=== PATIENT | female | born 1975 | race Caucasian/White ===

== ENCOUNTER 2016-06-17 19:10 | Emergency (ER) | payer OTHER ==
[~2016-06-17] VITALS: Ht 162.6 cm; Wt 63.5 kg
--- NOTE | ~2016-06-17 | EKG ---
[address] [address] ELECTROCARDIOGRAM REPORT Name: SHOSHANA SORIANO Room #: DEP [facility]#: [id number] Admission: 06/17/16 Attend Phys: Discharge: 06/17/16 Date of : 71 Report #: [id number] THIS REPORT FOR: //name// [facility] ED Test Date: 2016-06-17 Test Time: 19:14:15 Pat Name: SHOSHANA SORIANO Department: Room: Gender: F Data Management Analyst: ART : 1975 Requested By: Jw Fletcher Order Number: [id number] MD: Darrel Banks Measurements Intervals [place] Rate: 73 P: 25 [place]: 137 QRS: 40 QRSD: 97 T: 49 QT: 379 QTc: 418 Interpretive Statements Sinus arrhythmia Compared to ECG 05/24/2016 20:27:27 Sinus tachycardia no longer present Electronically Signed On 06-18-2016 7:34:17 CDT by Darrel Banks [email or web address] <ELECTRONICALLY SIGNED> By: Darrel Banks MD, [facility] 06/18/16 0734 [id number] 13 Darrel Banks MD, FACC /EPI
[~2016-06-17 19:10] MED LIST: ALBUTEROL INH INH; ALBUTEROL2.5 MG/0.5; ALBUTEROL2.5 MG/0.5 INH; ALBUTEROL2.5 MG/31 INH; ALBUTEROL2.5 MG/32 IH; CLEOCIN HCL150 MG PO; FLEXERIL PO; IBUPROFEN 200200 M1 PO; LEVAQUIN 750 M750 MG PO; MEDROL DOSPAK21 TAB PO; MEDROLDOSEPACK PO; MUCINEX22 ML NS; NOHOMEMEDICATIONS; NORCO 5-325 TA1 EACH PO; PENICILLIN V P500 MG PO; PREDNISONE 20 M20 MG PO; PREDNISONE50 MG PO; PRILOSEC 20 MG20 MG PO; PROAIR HFA8.5 GM IH; PROVENTIL HFA6.7 G1 INH; ROBITUSSIN100 MG/53 PO; TESSALON PERLE100 M1 PO; VENTOLIN HFA 1818 GM INH; ZOFRAN ODT4 MG PO; ZPAK PO
[2016-06-17 20:35] LABS: ABSOLUTE NEUTROPHILS 2.7 thou/uL (1.4-8.2); BASOPHILS 0.7 % (0.0-2.0); EOSINOPHILS 4.4 % (0.0-3.0); HEMATOCRIT 40.8 % (37.0-47.0); HEMOGLOBIN 13.8 gm/dL (12.0-15.0); LYMPHOCYTES 41.2 % (24.0-44.0); MCH 30.9 pg (26.0-34.0); MCHC 33.8 g/dL (28.0-37.0); MCV 91.3 fL (80.0-100.0); PLATELET COUNT 276 thou/uL (150-400); POLYS 46.7 % (36.0-66.0); RBC 4.46 mil/uL (4.20-5.00); RDW 13.8 % (10.5-14.5); WBC 5.7 thou/uL (4.0-11.0)
[2016-06-17 20:36] LABS: MANUAL DIFF NO
[2016-06-17 20:42] LABS: ANION GAP 4 mmol/L (7-16); BUN 9 mg/dL (7-18); CALCIUM 8.9 mg/dL (8.5-10.1); CHLORIDE 109 mmol/L (98-107); CO2 26 mmol/L (21-32); GLUCOSE 94 mg/dL (70-99); POTASSIUM 3.6 mmol/L (3.5-5.1); SODIUM 139 mmol/L (136-145)
[2016-06-17] MEDS ORDERED: PREDNISONE 20 M20 MG PO (20:48)
[2016-06-17 20:49] LABS: ALBUMIN 3.3 g/dL (3.4-5.0); ALKALINE PHOSPHATASE 72 U/L (46-116); SGOT 14 U/L (15-37); SGPT 17 U/L (30-65); TOTAL BILIRUBIN 0.4 mg/dL (<0.1-1.0); TOTAL PROTEIN 6.4 g/dL (6.4-8.2); TROPONIN-I < 0.04 ng/mL (<0.04-0.07)
[2016-06-17] MEDS ORDERED: VENTOLIN HFA 1818 GM INH (21:21)
[2016-06-17] MEDS ORDERED: SINGULAIR 10 MG10 M1 PO (21:21)
[2016-06-17 21:23] VITALS: BP 113/80
== END 2016-06-17 21:24 | disposition home or self-care (01) ==
LOC: ER 19:10
PROVIDERS: Physician Assistant
DX: J45.901 Unspecified asthma with (acute) exacerbation (principal); D68.2 Hereditary deficiency of other clotting factors; F17.210 Nicotine dependence, cigarettes, uncomplicated

== ENCOUNTER 2016-10-22 01:13 | Emergency (ER) | payer OTHER ==
[~2016-10-22] VITALS: Ht 162.6 cm; Wt 68.0 kg
[~2016-10-22 01:13] MED LIST changes: +SINGULAIR 10 MG10 M1 PO
[2016-10-22] MEDS ORDERED: ASPIR 8181 MG PO (01:37)
[2016-10-22] MEDS ORDERED: PREDNISONE 20 M20 MG PO (02:06)
[2016-10-22 02:56] VITALS: BP 110/65
== END 2016-10-22 02:59 | disposition home or self-care (01) ==
LOC: ER 01:13
DX: J45.901 Unspecified asthma with (acute) exacerbation (principal); Z87.19 Personal history of other diseases of the digestive system; Z86.718 Personal history of other venous thrombosis and embolism; F17.210 Nicotine dependence, cigarettes, uncomplicated; Z79.82 Long term (current) use of aspirin

== ENCOUNTER 2016-12-30 21:34 | Emergency (ER) | payer OTHER ==
[~2016-12-30] VITALS: Ht 162.6 cm; Wt 68.0 kg
[~2016-12-30 21:34] MED LIST changes: +ASPIR 8181 MG PO
[2016-12-30] MEDS ORDERED: PREDNISONE50 MG PO (23:18)
[2016-12-30 23:29] VITALS: BP 112/75
== END 2016-12-30 23:31 | disposition home or self-care (01) ==
LOC: ER 21:34
DX: J45.901 Unspecified asthma with (acute) exacerbation (principal); F17.210 Nicotine dependence, cigarettes, uncomplicated; Z86.718 Personal history of other venous thrombosis and embolism; Z87.19 Personal history of other diseases of the digestive system

== ENCOUNTER 2017-05-02 17:45 | Emergency (ER) | payer OTHER ==
[~2017-05-02] VITALS: Ht 162.6 cm; Wt 68.0 kg
[~2017-05-02 17:45] MED LIST changes: +AFRIN30 ML NASAL; +MUCINEX DM ER1 EAC1 PO; +PREDNISONE 10 M10 MG PO
[2017-05-02] MEDS ORDERED: PROAIR HFA8.5 GM INH (17:58)
[2017-05-02] MEDS ORDERED: PREDNISONE 20 M20 MG PO (17:58)
[2017-05-02] MEDS ORDERED: ALBUTEROL2.5 MG/31 INH (17:58)
[2017-05-02 18:45] VITALS: BP 140/83
== END 2017-05-02 19:28 | disposition home or self-care (01) ==
LOC: ER 17:45
DX: Z77.098 Contact with and (suspected) exposure to other hazardous, chiefly nonmedicinal, chemicals (principal); J45.901 Unspecified asthma with (acute) exacerbation; F17.210 Nicotine dependence, cigarettes, uncomplicated

== ENCOUNTER 2017-05-05 06:01 | Observation (INO) | payer OTHER ==
[~2017-05-05] VITALS: Ht 162.6 cm; Wt 68.0 kg
[~2017-05-05 06:01] MED LIST changes: +PROAIR HFA8.5 GM INH
[2017-05-05 06:07] VITALS: BP 127/76
[2017-05-05] MEDS ORDERED: PREDNISONE 20 M20 MG PO (07:47)
[2017-05-05 08:21] VITALS: BP 125/70
[2017-05-05 08:26] LABS: HEMATOCRIT 39.7 % (37.0-47.0); HEMOGLOBIN 13.3 gm/dL (12.0-15.0); MCH 30.2 pg (26.0-34.0); MCHC 33.6 g/dL (28.0-37.0); MCV 89.7 fL (80.0-100.0); RBC 4.42 mil/uL (4.20-5.00); RDW 13.7 % (10.5-14.5)
[2017-05-05 08:39] LABS: CREATININE 0.9 mg/dL (0.6-1.0); POTASSIUM 3.7 mmol/L (3.5-5.1)
[2017-05-05 08:40] LABS: URINE BILIRUBIN NEGATIVE (Negative); URINE BLOOD NEGATIVE (Negative); URINE CLARITY CLEAR; URINE COLOR YELLOW; URINE GLUCOSE-RANDOM* NEGATIVE (Negative); URINE KETONES NEGATIVE (Negative); URINE LEUKOCYTES NEGATIVE (Negative); URINE NITRITE NEGATIVE (Negative); URINE PROTEIN (DIPSTICK) NEGATIVE (Negative); URINE SPECIFIC GRAVITY 1.025 (1.005-1.035); URINE UROBILINOGEN 0.2 E.U./dl (0.2-1.0)
[2017-05-05 08:47] LABS: ALBUMIN 3.5 g/dL (3.4-5.0); TOTAL BILIRUBIN 0.3 mg/dL (<0.1-1.0); TOTAL PROTEIN 6.5 g/dL (6.4-8.2)
[2017-05-05 09:04] VITALS: BP 110/66
[2017-05-05 09:20] VITALS: BP 110/59
[2017-05-05 10:26] LABS: TSH 2.407 uIU/mL (0.358-3.740)
[2017-05-05 16:46] VITALS: BP 104/61
[2017-05-05 19:58] VITALS: BP 120/65
[2017-05-06] VITALS: BP 100/50
[2017-05-06 04:00] VITALS: BP 95/53
[2017-05-06 04:20] LABS: CALCIUM 8.9 mg/dL (8.5-10.1); CREATININE 0.9 mg/dL (0.6-1.0); MAGNESIUM 2.1 mg/dL (1.8-2.4); POTASSIUM 4.4 mmol/L (3.5-5.1)
[2017-05-06 05:07] LABS: GLYCOHEMOGLOBIN (HGB A1C) 5.4 % (4.8-5.6)
[2017-05-06 07:21] VITALS: BP 104/60
[2017-05-06] MEDS ORDERED: SYMBICORT160 MCG/4. INH (08:37)
[2017-05-06] MEDS ORDERED: ACCUNEB SO1.25 MG/1 INH (08:37)
[2017-05-06 09:59] VITALS: BP 104/60
== END 2017-05-06 10:52 | disposition home or self-care (01) ==
LOC: ER 06:01 → EROBS 08:00 → 4N 09:04
PROVIDERS: Emergency Medicine; Nurse Practitioner
DX: J45.901 Unspecified asthma with (acute) exacerbation (principal); D72.829 Elevated white blood cell count, unspecified; T38.0X5A Adverse effect of glucocorticoids and synthetic analogues, initial encounter; R73.9 Hyperglycemia, unspecified; D68.51 Activated protein C resistance; Z86.718 Personal history of other venous thrombosis and embolism; Z87.891 Personal history of nicotine dependence

== ENCOUNTER 2017-06-01 19:30 | Inpatient (IN) | payer OTHER ==
[~2017-06-01] VITALS: Ht 162.6 cm; Wt 75.3 kg
[~2017-06-01 19:30] MED LIST changes: +ACCUNEB SO1.25 MG/1 INH; +SYMBICORT160 MCG/4. INH
[2017-06-01 19:33] VITALS: BP 114/77
[2017-06-01 20:11] LABS: ABSOLUTE NEUTROPHILS 9.3 thou/uL (1.4-8.2); BASOPHILS 0.3 % (0.0-2.0); EOSINOPHILS 0.5 % (0.0-3.0); HEMATOCRIT 43.1 % (37.0-47.0); HEMOGLOBIN 14.8 gm/dL (12.0-15.0); LYMPHOCYTES 5.4 % (24.0-44.0); MCH 30.8 pg (26.0-34.0); MCHC 34.2 g/dL (28.0-37.0); MCV 89.9 fL (80.0-100.0); MONOCYTES 2.8 % (1.0-8.0); PLATELET COUNT 347 thou/uL (150-400); RDW 13.8 % (10.5-14.5); WBC 10.3 thou/uL (4.0-11.0)
[2017-06-01] MEDS ORDERED: AFRIN30 ML SPRAY (20:15)
[2017-06-01 20:16] LABS: CALCIUM 9.3 mg/dL (8.5-10.1); POTASSIUM 3.9 mmol/L (3.5-5.1)
[2017-06-02 17:58] VITALS: BP 121/72
[2017-06-02 18:37] VITALS: BP 121/72
[2017-06-02 20:26] VITALS: BP 105/65
[2017-06-03 04:11] VITALS: BP 110/73
[2017-06-03 06:07] LABS: CALCIUM 9.1 mg/dL (8.5-10.1); CREATININE 1.1 mg/dL (0.6-1.0); MAGNESIUM 2.1 mg/dL (1.8-2.4); POTASSIUM 4.6 mmol/L (3.5-5.1)
[2017-06-03 08:00] VITALS: BP 105/64
[2017-06-03 16:00] VITALS: BP 112/66
[2017-06-03 19:15] VITALS: BP 105/61
[2017-06-04 04:22] VITALS: BP 112/78
[2017-06-04 08:09] VITALS: BP 101/64
[2017-06-04] MEDS ORDERED: PREDNISONE 10 M10 MG PO (09:01)
[2017-06-04 09:12] VITALS: BP 101/64
== END 2017-06-04 10:10 | disposition home or self-care (01) | DRG 203 ==
LOC: ER 19:30 → EROBS 23:17 → 4S 06-02 19:49
PROVIDERS: Emergency Medicine; Nurse Practitioner
DX: J45.901 Unspecified asthma with (acute) exacerbation (principal); Z86.718 Personal history of other venous thrombosis and embolism; Z79.899 Other long term (current) drug therapy; Z83.3 Family history of diabetes mellitus; Z82.49 Family history of ischemic heart disease and other diseases of the circulatory system; Z87.891 Personal history of nicotine dependence
CPT/HCPCS: 10195

== ENCOUNTER 2019-08-11 12:38 | Inpatient (IN) | payer OTHER ==
[~2019-08-11] VITALS: Ht 162.6 cm; Wt 68.0 kg
[~2019-08-11 12:38] MED LIST changes: +AFRIN30 ML SPRAY
[2019-08-11 12:39] VITALS: BP 126/79
[2019-08-11 13:23] LABS: HEMATOCRIT 43.3 % (37.0-47.0); HEMOGLOBIN 14.5 gm/dL (12.0-15.0); MCH 29.9 pg (26.0-34.0); MCHC 33.5 g/dL (28.0-37.0); MCV 89.1 fL (80.0-100.0); RBC 4.86 mil/uL (4.20-5.00); RDW 13.8 % (10.5-14.5); WBC 9.2 thou/uL (4.0-11.0)
[2019-08-11 13:33] LABS: ANION GAP 10 mmol/L (7-16); BUN 9 mg/dL (7-18); CALCIUM 8.7 mg/dL (8.5-10.1); CHLORIDE 106 mmol/L (98-107); CO2 25 mmol/L (21-32); GLUCOSE 121 mg/dL (74-106); POTASSIUM 3.7 mmol/L (3.5-5.1); SODIUM 141 mmol/L (136-145)
[2019-08-11 13:41] LABS: TROPONIN-I <0.06 ng/mL (<0.06)
[2019-08-11 14:52] VITALS: BP 119/71
[2019-08-11 15:40] VITALS: BP 100/76
[2019-08-11 16:05] VITALS: BP 133/79
--- NOTE | 2019-08-11 18:31 | NUR ---
A*O, cooperative and pleasant; patient had 4 L on when she arrived on the floor. denied pain. vss, afebrile. lab reviewed.
[2019-08-11 19:39] VITALS: BP 130/72
[2019-08-11 20:17] LABS: BE(vivo) -3.4 mmol/L (-2 to +3); HCO3 20.9 mmol/L (22.0-26.0); PCO2 35.4 mmHg (35.0-45.0); PO2 66.4 mmHg (80.0-100.0); pH 7.388 (7.360-7.450); sO2 93.1 % (92.0-98.0)
--- NOTE | 2019-08-12 02:06 | NUR ---
PT CARE ASSUMED AT 1915 WITH PT IN BED.PT IS A/O X4.PT IS ON 5L OF O2 AND HAD LABOURED BREATHING.PT O2 SAT OK.VIDEO CONFERENCE SPECIALIST MICHELE NOTIFIED AND PRN BREATHING TREATMENT ORDERED AND LABS ORDERED.MAGNESIUM SULFATE ORDERED .PT REPORTS TO FEEL BETTER AFTER BREATHING TREATMENT WAS DONE AND MAGNESIUM SULFATE GIVEN.PT DENIES WEARING OXYGEN AT HOME.BIPAP ORDERED AND PT REFUSED BIPAP.WILL CONTINUE TO MONITOR PER PROTOCOL
[2019-08-12 03:29] VITALS: BP 122/68
[2019-08-12 07:03] VITALS: BP 126/72
--- NOTE | 2019-08-12 07:25 | NUR ---
PT WAS FOUND WITHOUT O2. WHEN ASKED ABOUT IT, PT STATED THAT SHE DCed O2 HERSELF. PT SAYS SHE IS NOT EXPERIENCING SOA AND SATS AT 95% ON RA. WILL CONINUE TO MONITOR FOR O2 NEEDS.
[2019-08-12 07:31] LABS: HEMATOCRIT 40.4 % (37.0-47.0); HEMOGLOBIN 13.6 gm/dL (12.0-15.0); MCH 30.1 pg (26.0-34.0); MCHC 33.7 g/dL (28.0-37.0); MCV 89.4 fL (80.0-100.0); RBC 4.52 mil/uL (4.20-5.00); RDW 13.9 % (10.5-14.5); WBC 7.7 thou/uL (4.0-11.0)
[2019-08-12 07:53] LABS: CALCIUM 8.9 mg/dL (8.5-10.1); CREATININE 0.8 mg/dL (0.6-1.0); POTASSIUM 4.4 mmol/L (3.5-5.1)
[2019-08-12 14:58] VITALS: BP 110/72
--- NOTE | 2019-08-12 15:59 | NUR ---
PT A&OX4, VSS, DENIES PAIN. PT DENIES SOA, BREATHING TREATMENTS PRN, LUNGS CLR. PATIENT AD AI TO BATHROOM. NO SIGNS OF DISTRESS, WILL CONTINUE TO MONITOR.
[2019-08-12 19:40] VITALS: BP 113/72
--- NOTE | 2019-08-13 03:15 | NUR ---
ASSUMED CARE OF PT AT 1900HRS. PT IS AOX4 AND LETS NEEDS BE KNOWN. PT IS UP AD AI. PT DCed O2 AND IS TOLERATING RA. PT DENIED PAIN, NAUSEA OR SOB THIS SHIFT. STEROIDS CONTINUED BUT BEING TAPERED. PT WAS ABLE TO GET COMFORTABLE AND SLEEP PART OF THE SHIFT. VSS AND NO S/S OF ACUTE DISTRESS. PT IS PROGRESSING TOWARDS DC GOALS. WILL CONTINUE TO MONITOR FOR CHANGES.
[2019-08-13 03:45] VITALS: BP 114/63
[2019-08-13 07:33] VITALS: BP 118/64
--- NOTE | 2019-08-13 08:01 | EKG ---
[facility] [place] [address] ELECTROCARDIOGRAM REPORT Name: SHOSHANA SORIANO Room #: 459-P ADM IN M.R.#: [id number] Admission: 08/11/19 Attend Phys: Mike Mcclelland MD Discharge: Date of : 71 Report #: [id number] THIS REPORT FOR: cc: [facility] Darrel Banks MD [facility] THIS REPORT FOR: //name// [facility] ED Test Date: 2019-08-11 Test Time: 14:06:10 Pat Name: SHOSHANA SORIANO Department: Room: 45 Gender: F Pot Fireman: [place] : 1975 Requested By: Howie Judge Order Number: [id number] MD: Darrel Banks Measurements Intervals [place] Rate: 97 P: 24 IN: 116 QRS: 32 QRSD: 89 T: 63 QT: 357 QTc: 454 Interpretive Statements Sinus rhythm Borderline short IN interval Compared to ECG 01/27/2017 21:20:30 No significant changes Electronically Signed On 08-13-2019 7:59:38 CDT by Darrel Banks [email or web address] <ELECTRONICALLY SIGNED> By: Darrel Banks MD, FACC 08/13/19 0759 1406 1406 Darrel Banks MD, [facility] /EPI
[2019-08-13] MEDS ORDERED: IPRAT-ALBUT 0.5-3 ML INH (11:28)
[2019-08-13] MEDS ORDERED: PULMICORT0.5 MG/21 INH (11:28)
[2019-08-13] MEDS ORDERED: PREDNISONE 5 MG5 MG PO (11:28)
--- NOTE | 2019-08-13 12:06 | NUR ---
ASSUMED CARE AT 0700. PT ALERT AND ORIENTED. VSSA/RA. NO COMPLAINTS AT THIS TIME. STATES READY TO GO HOME, FEELS MUCH BETTER. WILL CONTINUE TO MONITOR.
[2019-08-13 12:12] VITALS: BP 118/64
== END 2019-08-13 12:54 | disposition home or self-care (01) | DRG 203 ==
LOC: ER 12:38 → 4W 14:37 → EROBS 14:37 → 4W 15:44
PROVIDERS: Emergency Medicine; Nurse Practitioner Family; ADMIT Hospitalist
DX: J45.21 Mild intermittent asthma with (acute) exacerbation (principal); J44.9 Chronic obstructive pulmonary disease, unspecified; F17.200 Nicotine dependence, unspecified, uncomplicated
CPT/HCPCS: 10040

== ENCOUNTER 2019-10-30 09:19 | Emergency (ER) | payer OTHER ==
[~2019-10-30] VITALS: Ht 162.6 cm; Wt 78.5 kg
[~2019-10-30 09:19] MED LIST changes: +IPRAT-ALBUT 0.5-3 ML INH; +PREDNISONE 5 MG5 MG PO; +PULMICORT0.5 MG/21 INH
[2019-10-30] MEDS ORDERED: PREDNISONE 20 M20 MG PO (11:59)
[2019-10-30] MEDS ORDERED: VENTOLIN HFA 1818 GM INH (11:59)
[2019-10-30 12:14] VITALS: BP 110/60
== END 2019-10-30 12:16 | disposition home or self-care (01) ==
LOC: ER 09:19
DX: J45.901 Unspecified asthma with (acute) exacerbation (principal); J30.9 Allergic rhinitis, unspecified; Z20.828 Contact with and (suspected) exposure to other viral communicable diseases; J44.9 Chronic obstructive pulmonary disease, unspecified; F17.210 Nicotine dependence, cigarettes, uncomplicated; Z86.718 Personal history of other venous thrombosis and embolism; Z79.899 Other long term (current) drug therapy

== ENCOUNTER 2019-11-15 22:57 | Emergency (ER) | payer OTHER ==
[~2019-11-15] VITALS: Ht 165.1 cm; Wt 79.4 kg
[2019-11-16] MEDS ORDERED: ALBUTEROL2.5 MG/0.5 INH (00:46)
[2019-11-16] MEDS ORDERED: PREDNISONE 20 M20 MG PO (00:46)
[2019-11-16 00:56] VITALS: BP 137/84
== END 2019-11-16 01:00 | disposition home or self-care (01) ==
LOC: ER 22:57
DX: J44.1 Chronic obstructive pulmonary disease with (acute) exacerbation (principal); F17.210 Nicotine dependence, cigarettes, uncomplicated; Z98.51 Tubal ligation status; Z90.49 Acquired absence of other specified parts of digestive tract; Z79.899 Other long term (current) drug therapy

== ENCOUNTER 2020-01-23 20:48 | Emergency (ER) | payer OTHER ==
[~2020-01-23] VITALS: Ht 162.6 cm; Wt 77.1 kg
[2020-01-23] MEDS ORDERED: ASA81BEC PO (20:54)
[2020-01-24] MEDS ORDERED: IPRAT-ALBUT 0.5-3 ML NEB (01:35)
[2020-01-24] MEDS ORDERED: ZPAK PO (01:36)
[2020-01-24] MEDS ORDERED: PREDNISONE 20 M20 M1 PO (01:36)
[2020-01-24 01:53] VITALS: BP 119/58
== END 2020-01-24 01:54 | disposition home or self-care (01) ==
LOC: ER 20:48
DX: J44.1 Chronic obstructive pulmonary disease with (acute) exacerbation (principal); F17.210 Nicotine dependence, cigarettes, uncomplicated; Z90.49 Acquired absence of other specified parts of digestive tract; Z79.82 Long term (current) use of aspirin

== ENCOUNTER 2020-04-03 21:13 | Emergency (ER) | payer OTHER ==
[~2020-04-03] VITALS: Ht 162.6 cm; Wt 81.7 kg
[~2020-04-03 21:13] MED LIST changes: +ASA81BEC PO; +IPRAT-ALBUT 0.5-3 ML NEB; +PREDNISONE 20 M20 M1 PO
[2020-04-03 21:41] LABS: ABSOLUTE NEUTROPHILS 6.2 thou/uL (1.4-8.2); BASOPHILS 0.7 % (0.0-2.0); EOSINOPHILS 5.2 % (0.0-3.0); HEMATOCRIT 43.1 % (37.0-47.0); HEMOGLOBIN 14.2 gm/dL (12.0-15.0); LYMPHOCYTES 26.7 % (24.0-44.0); MCH 30.2 pg (26.0-34.0); MCHC 32.9 g/dL (28.0-37.0); MCV 91.8 fL (80.0-100.0); MONOCYTES 6.4 % (1.0-8.0); PLATELET COUNT 404 thou/uL (150-400); RBC 4.69 mil/uL (4.20-5.00); RDW 13.9 % (10.5-14.5); WBC 10.1 thou/uL (4.0-11.0)
[2020-04-03 21:52] LABS: ANION GAP 9 mmol/L (7-16); BUN 17 mg/dL (7-18); CALCIUM 9.4 mg/dL (8.5-10.1); CHLORIDE 106 mmol/L (98-107); CO2 26 mmol/L (21-32); CREATININE 1.1 mg/dL (0.6-1.0); GLUCOSE 108 mg/dL (74-106); POTASSIUM 3.8 mmol/L (3.5-5.1); SODIUM 141 mmol/L (136-145)
[2020-04-03 22:01] LABS: ALBUMIN 3.8 g/dL (3.4-5.0); SGOT 11 U/L (15-37); SGPT 19 U/L (14-59); TOTAL BILIRUBIN 0.3 mg/dL (0.2-1.0); TOTAL PROTEIN 7.1 g/dL (6.4-8.2); TROPONIN-I <0.06 ng/mL (<0.06)
[2020-04-03 22:42] VITALS: BP 104/72
[2020-04-03] MEDS ORDERED: PROAIR HFA8.5 GM INH (22:48)
[2020-04-03] MEDS ORDERED: PREDNISONE 20 M20 M1 PO (22:48)
[2020-04-03] MEDS ORDERED: LEVOFLOXACIN750 MG PO (22:48)
--- NOTE | 2020-04-04 07:17 | EKG ---
[address] [address] ELECTROCARDIOGRAM REPORT Name: SHOSHANA SORIANO [id number] Admission: 04/03/20 Attend Phys: Discharge: 04/03/20 Date of : 71 Report #: [id number] [facility] ED Test Date: 2020-04-03 Test Time: 21:36:06 Pat Name: SHOSHANA SORIANO Department: Room: Gender: F Construction Economist: sonya : 1975 Requested By: Jw Fletcher Order Number: [id number] MD: Bob Shi Measurements Intervals [place] Rate: 74 P: 8 [place]: 137 QRS: 21 QRSD: 83 T: 54 QT: 389 QTc: 432 Interpretive Statements Sinus rhythm Compared to ECG 08/11/2019 14:06:10 No significant changes Electronically Signed On 04-04-2020 7:17:49 STEAM CLEANING MACHINE OPERATOR by Bob Shi [email or web address] <ELECTRONICALLY SIGNED> By: Bob Shi MD, [facility] 04/04/20 0717 2136 2136 Bob Shi MD, FACC /EPI
== END 2020-04-03 23:25 | disposition home or self-care (01) ==
LOC: ER 21:13
PROVIDERS: Physician Assistant
DX: J44.1 Chronic obstructive pulmonary disease with (acute) exacerbation (principal); F17.210 Nicotine dependence, cigarettes, uncomplicated; Z90.49 Acquired absence of other specified parts of digestive tract; Z79.899 Other long term (current) drug therapy; Z79.82 Long term (current) use of aspirin

== ENCOUNTER 2020-04-22 20:19 | Emergency (ER) | payer OTHER ==
[~2020-04-22] VITALS: Ht 162.6 cm; Wt 77.1 kg
[~2020-04-22 20:19] MED LIST changes: +LEVOFLOXACIN750 MG PO
[2020-04-22 21:31] LABS: ABSOLUTE NEUTROPHILS 7.5 thou/uL (1.4-8.2); BASOPHILS 0.6 % (0.0-2.0); EOSINOPHILS 1.8 % (0.0-3.0); HEMATOCRIT 42.5 % (37.0-47.0); HEMOGLOBIN 14.1 gm/dL (12.0-15.0); LYMPHOCYTES 16.1 % (24.0-44.0); MCH 30.4 pg (26.0-34.0); MCHC 33.2 g/dL (28.0-37.0); MCV 91.5 fL (80.0-100.0); MONOCYTES 5.2 % (1.0-8.0); PLATELET COUNT 325 thou/uL (150-400); POLYS 76.3 % (36.0-66.0); RBC 4.65 mil/uL (4.20-5.00); RDW 13.9 % (10.5-14.5); WBC 9.8 thou/uL (4.0-11.0)
[2020-04-22] MEDS ORDERED: ALBUTEROL2.5 MG/31 INH (22:39)
[2020-04-22 22:51] VITALS: BP 114/69
[2020-04-22] MEDS ORDERED: PREDNISONE 20 M20 MG PO (22:58)
== END 2020-04-22 23:01 | disposition home or self-care (01) ==
LOC: ER 20:19
PROVIDERS: Nurse Practitioner
DX: J45.909 Unspecified asthma, uncomplicated (principal); F17.210 Nicotine dependence, cigarettes, uncomplicated; Z98.51 Tubal ligation status; Z90.49 Acquired absence of other specified parts of digestive tract; Z79.899 Other long term (current) drug therapy; Z79.82 Long term (current) use of aspirin

== ENCOUNTER 2020-04-23 20:26 | Inpatient (IN) | payer OTHER ==
[~2020-04-23] VITALS: Ht 162.6 cm; Wt 72.6 kg
[2020-04-23 20:40] VITALS: BP 129/87
[2020-04-23 20:52] LABS: ABSOLUTE NEUTROPHILS 14.5 thou/uL (1.4-8.2); BASOPHILS 0.4 % (0.0-2.0); EOSINOPHILS 0.2 % (0.0-3.0); HEMATOCRIT 45.2 % (37.0-47.0); HEMOGLOBIN 14.8 gm/dL (12.0-15.0); LYMPHOCYTES 8.3 % (24.0-44.0); MCH 29.7 pg (26.0-34.0); MCHC 32.8 g/dL (28.0-37.0); MCV 90.8 fL (80.0-100.0); MONOCYTES 4.8 % (1.0-8.0); POLYS 86.3 % (36.0-66.0); RBC 4.98 mil/uL (4.20-5.00); RDW 13.6 % (10.5-14.5); WBC 16.9 thou/uL (4.0-11.0)
[2020-04-23 20:56] LABS: PLATELET COUNT 405 thou/uL (150-400)
[2020-04-23 21:05] LABS: CALCIUM 9.8 mg/dL (8.5-10.1); CREATININE 0.9 mg/dL (0.6-1.0); MAGNESIUM 2.5 mg/dL (1.8-2.4)
[2020-04-23 21:32] LABS: POTASSIUM 5.4 mmol/L (3.5-5.1)
[2020-04-23 21:56] LABS: BE(vivo) -4.9 mmol/L (-2 to +3); HCO3 19.6 mmol/L (22.0-26.0); PCO2 35.2 mmHg (35.0-45.0); PO2 67.3 mmHg (80.0-100.0); pH 7.364 (7.360-7.450)
[2020-04-23 22:52] VITALS: BP 116/66
[2020-04-23 22:59] VITALS: BP 116/66
[2020-04-23 23:19] VITALS: BP 107/83
--- NOTE | 2020-04-24 00:29 | NUR ---
PT ADMITTED FROM HOME. PT PRESENTED IN ED LAST NIGHT AND WAS DELAYED IN OBTAINING PRESCRIPTION FOR ORAL ANTIBIOTICS, PT RETURNED TONIGHT WITH INCREASED SOA. LUNGS WHEEZES, O2 NC, PT HAS LABORED BREATHING AND SOA WHEN TALKING AND WALKING. PT REPORTS RECENT HISTORY OF CIGARETTE SMOKING AND DAILY MARIJUANA USE. PT HAS BEEN USING NICOTENE PATCHES. PT REQUESTED DINNER AND SANDWICH TRAY PROVIDED. STEADY INDEPENDENT GAIT. PT REPORTED TESTING NEGATIVE FOR COVID AT [facility] APPROXIMATELY A WEEK OR TWO AGO.
[2020-04-24 03:51] VITALS: BP 100/59
--- NOTE | 2020-04-24 04:23 | NUR ---
COVID PCR IS NEG. CHARGE, COOK BARBECUE AND PROVIDER PHYSICAL CHEMISTRY TEACHER UPDATED.
[2020-04-24 05:29] LABS: HEMATOCRIT 41.8 % (37.0-47.0); HEMOGLOBIN 13.7 gm/dL (12.0-15.0); MCHC 32.7 g/dL (28.0-37.0); MCV 91.7 fL (80.0-100.0); RBC 4.56 mil/uL (4.20-5.00); WBC 8.2 thou/uL (4.0-11.0)
[2020-04-24 05:52] LABS: CALCIUM 9.4 mg/dL (8.5-10.1); CREATININE 1.2 mg/dL (0.6-1.0)
[2020-04-24 06:08] LABS: POTASSIUM 4.9 mmol/L (3.5-5.1)
[2020-04-24 08:15] VITALS: BP 97/56
--- NOTE | 2020-04-24 15:32 | NUR ---
INITIAL ASSESSMENT: ROZINA reviewed chart and spoke with nursing and attending physician. Pt was admitted from home due to exacerbation of asthma. Pt placed in Enhanced Isolation to r/o COVID-19. Pt's test is negative. Order entered for Enhanced Isolation precautions to be discontinued. Pt is on IV abx and IV steroids. Pt does not have health insurance. ROZINA spoke with pt via phone. Introduced role of SW. Pt is alert/orientated x 4. Pt reports she lives at home with her . Prior to admission, pt was independent with ADLs. No use of DME for ambulation. Pt does have a nebulizer and inhaler. Pt does not have a PCP. Pt states she tried to get established with [facility], but had a negative experience with the PARTS INTERPRETER that was assigned to her. Request to have another PARTS INTERPRETER/physician assigned was made. Pt has not followed up with [facility] and is interested in alternate options. ROZINA discussed safety net clinics and Health Resource guide. Pt would like info and assistance with seeing if she qualifies for Medicaid. SW discussed criteria for Medicaid. [facility]ist will follow up with her. Pt to be moved off 3W when a bed becomes available. ROZINA will provide info to pt prior to discharge. Plan is for pt to discharge home when medically stable. ROZINA is following to assist as needed with discharge planning.
[2020-04-24 16:15] VITALS: BP 106/62
[2020-04-24 18:57] VITALS: BP 108/76
--- NOTE | 2020-04-24 21:12 | NUR ---
PT NO LONGER IN ISOLATION. PT ON ROOM AIR. LUNGS WITH WHEEZES. PT NOT SOA WHEN TALKING WITH STAFF. PT WATCHING TV AND COMPLETING [employer] PROJECT. REPORTS SENSITIVITY WITH INCREASED RATE OF ANTIBIOTICS, SO RATE DECREASED. PT IS INDEPENDENT. PROVIDED HS SNACK.
[2020-04-25 03:37] VITALS: BP 99/60
[2020-04-25 05:28] LABS: HEMATOCRIT 41.3 % (37.0-47.0); HEMOGLOBIN 13.5 gm/dL (12.0-15.0); MCH 30.2 pg (26.0-34.0); MCHC 32.6 g/dL (28.0-37.0); MCV 92.6 fL (80.0-100.0); RBC 4.47 mil/uL (4.20-5.00); WBC 13.8 thou/uL (4.0-11.0)
[2020-04-25 05:36] LABS: CALCIUM 9.4 mg/dL (8.5-10.1); POTASSIUM 4.5 mmol/L (3.5-5.1)
[2020-04-25 07:05] VITALS: BP 122/73
[2020-04-25 08:00] VITALS: BP 126/60
[2020-04-25 09:16] LABS: URINE BILIRUBIN NEGATIVE (Negative); URINE BLOOD NEGATIVE (Negative); URINE CLARITY CLEAR; URINE COLOR YELLOW; URINE GLUCOSE-RANDOM* NEGATIVE (Negative); URINE KETONES NEGATIVE (Negative); URINE LEUKOCYTES-REFLEX NEGATIVE (Negative); URINE NITRITE-REFLEX NEGATIVE (Negative); URINE PROTEIN (DIPSTICK) NEGATIVE (Negative); URINE SPECIFIC GRAVITY 1.015 (1.005-1.035); URINE UROBILINOGEN 0.2 E.U./dl (0.2-1.0)
[2020-04-25] MEDS ORDERED: CEFDINIR300 MG PO ×2 (14:28→15:03)
[2020-04-25] MEDS ORDERED: PREDNISONE 10 M10 M1 PO ×2 (14:28→15:03)
[2020-04-25] MEDS ORDERED: PROAIR HFA8.5 GM INH (14:28)
[2020-04-25] MEDS ORDERED: ALBUTEROL2.5 MG/31 INH (15:03)
[2020-04-25 15:05] VITALS: BP 126/60
--- NOTE | 2020-04-25 15:12 | NUR ---
DISCHARGE NOTE: ROZINA reviewed chart and spoke with nursing and attending physician. Pt is medically stable to discharge home today. Discharge orders written. SW spoke with pt via phone. Pt states that she will have transportation home. Med Assist has screened pt for Medicaid. Pt states she needs assistance with medications as she just recently bought medications for her nebulizer. ROZINA discussed with attending physician. Scripts to be sent electronically to [facility]. ROZINA faxed face sheet to pharmacy and spoke with staff to notify. Scripts to be filled. Pharmacy to notify nurses station when meds are available. ROZINA providing nursing with Health Resource Guide to give to pt for follow up care. No additional SW needs identified at this time, but is available to assist should needs arise.
== END 2020-04-25 16:46 | disposition home or self-care (01) | DRG 189 ==
LOC: ER 20:26 → 3W 22:20 → EROBS 22:20 → 3W 23:00
PROVIDERS: Nurse Practitioner; ADMIT Hospitalist; ATTEND Hospitalist
DX: J96.21 Acute and chronic respiratory failure with hypoxia (principal); D68.2 Hereditary deficiency of other clotting factors; J45.901 Unspecified asthma with (acute) exacerbation; J45.909 Unspecified asthma, uncomplicated; J96.22 Acute and chronic respiratory failure with hypercapnia; J44.9 Chronic obstructive pulmonary disease, unspecified; F12.90 Cannabis use, unspecified, uncomplicated; Z87.891 Personal history of nicotine dependence; Z90.49 Acquired absence of other specified parts of digestive tract; Z20.822 Contact with and (suspected) exposure to COVID-19
CPT/HCPCS: 10080

== ENCOUNTER 2020-05-21 21:41 | Emergency (ER) | payer OTHER ==
[~2020-05-21] VITALS: Ht 162.6 cm; Wt 77.1 kg
[~2020-05-21 21:41] MED LIST changes: +CEFDINIR300 MG PO; +PREDNISONE 10 M10 M1 PO
[2020-05-21] MEDS ORDERED: PREDNISONE 10 M10 M1 PO (22:52)
[2020-05-21] MEDS ORDERED: RAYOS5 MG PO (22:52)
[2020-05-21 23:15] VITALS: BP 138/77
--- NOTE | 2020-05-22 07:08 | EKG ---
[place] [address] [facility] [place] [address] ELECTROCARDIOGRAM REPORT Name: SHOSHANA SORIANO Room #: DEP [facility]#: [id number] Admission: 05/21/20 Attend Phys: Discharge: 05/21/20 Date of : 71 Report #: [id number] [facility] ED Test Date: 2020-05-21 Test Time: 22:19:33 Pat Name: SHOSHANA SORIANO Department: Room: Gender: F Substance Abuse Prevention Coordinator: betzaida : 1975 Requested By: Fritz Woodruff Order Number: [id number] MD: Bob Shi Measurements Intervals [place] Rate: 101 P: 29 DC: 118 QRS: 22 QRSD: 87 T: 63 QT: 347 QTc: 450 Interpretive Statements Sinus tachycardia Ventricular premature complex Low voltage, extremity leads Baseline wander in lead(s) II Compared to ECG 04/03/2020 21:36:06 Ventricular premature complex(es) now present Low QRS voltage now present Sinus rhythm no longer present Electronically Signed On 05-22-2020 7:08:17 ASSISTANT DIRECTOR OF PUBLIC WORKS by Bob Shi [email or web address] <ELECTRONICALLY SIGNED> By: Bob Shi MD, [facility] 05/22/20 0708 18 Bob Shi MD, [facility] /EPI
== END 2020-05-21 23:15 | disposition home or self-care (01) ==
LOC: ER 21:41
DX: J44.1 Chronic obstructive pulmonary disease with (acute) exacerbation (principal); F17.210 Nicotine dependence, cigarettes, uncomplicated; Z79.899 Other long term (current) drug therapy

== ENCOUNTER 2020-06-02 23:54 | Emergency (ER) | payer OTHER ==
[~2020-06-02] VITALS: Ht 162.6 cm; Wt 77.1 kg
[~2020-06-02 23:54] MED LIST changes: +RAYOS5 MG PO
[2020-06-03 00:21] LABS: BASOPHILS 1.1 % (0.0-2.0); EOSINOPHILS 1.9 % (0.0-3.0)
[2020-06-03 00:23] LABS: ABSOLUTE NEUTROPHILS 9.8 thou/uL (1.4-8.2); HEMATOCRIT 40.7 % (37.0-47.0); HEMOGLOBIN 13.8 gm/dL (12.0-15.0); LYMPHOCYTES 22.3 % (24.0-44.0); MCH 31.1 pg (26.0-34.0); MCV 91.4 fL (80.0-100.0); MONOCYTES 6.1 % (1.0-8.0); PLATELET COUNT 309 thou/uL (150-400); POLYS 68.6 % (36.0-66.0); RBC 4.45 mil/uL (4.20-5.00); RDW 14.2 % (10.5-14.5); WBC 17.2 thou/uL (4.0-11.0)
[2020-06-03 00:30] LABS: ANION GAP 11 mmol/L (7-16); BUN 12 mg/dL (7-18); CHLORIDE 105 mmol/L (98-107); CO2 25 mmol/L (21-32); CREATININE 1.1 mg/dL (0.6-1.0); GLUCOSE 124 mg/dL (74-106); POTASSIUM 4.1 mmol/L (3.5-5.1); SODIUM 141 mmol/L (136-145)
[2020-06-03 00:40] LABS: ALBUMIN 3.7 g/dL (3.4-5.0); SGOT 18 U/L (15-37); SGPT 17 U/L (14-59); TOTAL BILIRUBIN 0.3 mg/dL (0.2-1.0); TOTAL PROTEIN 7.3 g/dL (6.4-8.2); TROPONIN-I <0.06 ng/mL (<0.06)
[2020-06-03 01:14] LABS: APTT 23.3 Seconds (24.5-32.8); D-DIMER 0.58 ug/mLFEU (0.19-0.50)
[2020-06-03] MEDS ORDERED: MEDROL DOSPAK21 TA1 PO (02:32)
[2020-06-03] MEDS ORDERED: ALBUTEROL2.5 MG/0.5 INH (02:32)
[2020-06-03] MEDS ORDERED: PROAIR HFA8.5 GM INH (02:32)
[2020-06-03] MEDS ORDERED: AZITHROMYCIN500 MG PO (02:32)
[2020-06-03 03:03] VITALS: BP 108/64
--- NOTE | 2020-06-03 07:20 | EKG ---
[place] [address] [employer] [facility] [place] [address] ELECTROCARDIOGRAM REPORT Name: SHOSHANA SORIANO Room #: DEP [facility]#: [id number] Admission: 06/02/20 Attend Phys: Discharge: 06/03/20 Date of : 71 Report #: [id number] [facility] ED Test Date: 2020-06-03 Test Time: 00:21:19 Pat Name: SHOSHANA SORIANO Department: Room: Gender: Accounting Coordinator: andree : 1975 Requested By: Ada Huntley Order Number: [id number] MD: Darrel Banks Measurements Intervals [place] Rate: 98 P: 32 MN: 138 QRS: 24 QRSD: 95 T: 61 QT: 351 QTc: 449 Interpretive Statements Sinus rhythm Ventricular premature complex Compared to ECG 05/21/2020 22:19:33 Sinus tachycardia no longer present Electronically Signed On 06-03-2020 7:20:03 ART DEALER by Darrel Banks [email or web address] <ELECTRONICALLY SIGNED> By: Darrel Banks MD, [facility] 06/03/20 0720 0021 0021 Darrel Banks MD, FACC /EPI
== END 2020-06-03 03:05 | disposition home or self-care (01) ==
LOC: ER 23:54
PROVIDERS: Emergency Medicine
DX: J44.1 Chronic obstructive pulmonary disease with (acute) exacerbation (principal); J20.9 Acute bronchitis, unspecified; Z90.49 Acquired absence of other specified parts of digestive tract; Z79.82 Long term (current) use of aspirin; Z79.899 Other long term (current) drug therapy; Z87.891 Personal history of nicotine dependence

== ENCOUNTER 2020-06-04 20:45 | Inpatient (IN) | payer OTHER ==
[~2020-06-04] VITALS: Ht 165.1 cm; Wt 73.5 kg
[~2020-06-04 20:45] MED LIST changes: +AZITHROMYCIN500 MG PO; +MEDROL DOSPAK21 TA1 PO
[2020-06-04 20:47] VITALS: BP 140/95
[2020-06-04 21:38] LABS: BASOPHILS 1.1 % (0.0-2.0); EOSINOPHILS 1.4 % (0.0-3.0); HEMATOCRIT 40.9 % (37.0-47.0); HEMOGLOBIN 13.4 gm/dL (12.0-15.0); LYMPHOCYTES 35.2 % (24.0-44.0); MCH 30.3 pg (26.0-34.0); MCHC 32.8 g/dL (28.0-37.0); MCV 92.4 fL (80.0-100.0); MONOCYTES 5.7 % (1.0-8.0); PLATELET COUNT 334 thou/uL (150-400); POLYS 56.6 % (36.0-66.0); RBC 4.42 mil/uL (4.20-5.00); WBC 8.9 thou/uL (4.0-11.0)
[2020-06-04 21:46] LABS: CALCIUM 8.7 mg/dL (8.5-10.1); POTASSIUM 3.8 mmol/L (3.5-5.1)
[2020-06-04 21:56] LABS: ALBUMIN 3.5 g/dL (3.4-5.0); TOTAL BILIRUBIN 0.3 mg/dL (0.2-1.0)
[2020-06-04 22:37] VITALS: BP 124/79
[2020-06-04 22:44] VITALS: BP 118/68
--- NOTE | 2020-06-04 23:51 | NUR ---
ADMISSION TO 3W. ALERT AND ORIENTED X4. CALM AND APPROP. SHE HAS BEEN DEALING WITH SOB/ COUGHING FOR SEVERAL DAYS. SHE IS EATING A SANDWICH TRAY AND STRUGGLING TO BREATH WHILE EATING. SHE LIVES AT HOME WITH HER , NO ONE AT HOME OR AROUND HER HAS HAD COVID OR COVID LIKE SYMPTOMS. ADMISSION ORDERS REVIEWED.
[2020-06-05 04:08] VITALS: BP 109/70
[2020-06-05 08:00] VITALS: BP 107/62
[2020-06-05] MEDS ORDERED: PREDNISONE 20 M20 MG PO ×2 (10:51→10:52)
--- NOTE | 2020-06-05 12:38 | NUR ---
INITIAL ASSESSMENT/DISCHARGE NOTE: SW reviewed chart and spoke with nursing and attending physician. Pt was admitted from home due to COPD/acute respiratory failure. Pt is medically stable to discharge home today. SW spoke with pt via phone. Introduced role of SW. Pt is alert/orientated x 4. Pt reports she lives at home. Prior to admission, pt was independent with ADLs. No use of DME for ambulation. Pt has a nebulizer. Pt does not have a PCP. Pt states she is interested in going to [facility], but does not want to go to the [facility]. SW explained that they have alternate clinics. Pt verbalized understanding. Pt requesting assistance with Medicaid/disability application. SW contacted [facility] national sales representative to request follow up with pt. Pt states she will be able to afford her meds at discharge. Pt will have transportation home. Pt provided with Health Resource guide for follow up care. No additional SW needs identified at this time, but is available to assist should needs arise.
[2020-06-05 14:55] VITALS: BP 107/62
--- NOTE | 2020-06-06 06:58 | EKG ---
[address] [place] [address] ELECTROCARDIOGRAM REPORT Name: SHOSHANA SORIANON Room #: 353-P [facility] IN .R.#: [id number] Admission: 06/04/20 Attend Phys: Sharla Norton MD Discharge: 06/05/20 Date of : 71 Report #: [id number] [facility] ED Test Date: 2020-06-04 Test Time: 20:57:09 Pat Name: SHOSHANA SORIANO Department: Room: 353 P Gender: F Loan Inspector: TIMUR [place] : 1975 Requested By: Ada Huntley Order Number: [id number] MD: Bob Shi Measurements Intervals [place] Rate: 101 P: 65 NM: 113 QRS: 17 QRSD: 84 T: 60 QT: 353 QTc: 458 Interpretive Statements Sinus tachycardia Artifact in lead(s) I,II,III,aVR,aVL,aVF,V1,V2,V4,V5,V6 Compared to ECG 06/03/2020 00:21:19 Sinus rhythm no longer present Ventricular premature complex(es) no longer present Electronically Signed On 06-06-2020 6:57:51 QUALITY ASSURANCE GROUP LEADER by Bob Shi [email or web address] <ELECTRONICALLY SIGNED> By: Bob Shi MD, FACC 06/06/20656 56 56 Bob Shi MD, FAC /EPI
== END 2020-06-05 15:59 | disposition home or self-care (01) | DRG 189 ==
LOC: ER 20:45 → EROBS 22:18 → 3W 22:18
PROVIDERS: Physician Assistant; ADMIT Hospitalist; ATTEND Hospitalist
DX: J96.00 Acute respiratory failure, unspecified whether with hypoxia or hypercapnia (principal); J44.1 Chronic obstructive pulmonary disease with (acute) exacerbation; D68.2 Hereditary deficiency of other clotting factors; J45.909 Unspecified asthma, uncomplicated; J44.9 Chronic obstructive pulmonary disease, unspecified; F12.90 Cannabis use, unspecified, uncomplicated; Z86.718 Personal history of other venous thrombosis and embolism; Z90.49 Acquired absence of other specified parts of digestive tract; Z87.891 Personal history of nicotine dependence; Z71.6 Tobacco abuse counseling; Z79.82 Long term (current) use of aspirin; Z79.899 Other long term (current) drug therapy; Z20.822 Contact with and (suspected) exposure to COVID-19
CPT/HCPCS: 10879

== ENCOUNTER 2020-06-21 21:27 | Emergency (ER) | payer OTHER ==
[~2020-06-21] VITALS: Ht 162.6 cm; Wt 74.8 kg
[2020-06-21 21:46] LABS: ABSOLUTE NEUTROPHILS 12.1 thou/uL (1.4-8.2); BASOPHILS 0.2 % (0.0-2.0); HEMATOCRIT 43.1 % (37.0-47.0); HEMOGLOBIN 14.6 gm/dL (12.0-15.0); LYMPHOCYTES 15.1 % (24.0-44.0); MCH 31.3 pg (26.0-34.0); MCHC 33.8 g/dL (28.0-37.0); MCV 92.5 fL (80.0-100.0); MONOCYTES 4.7 % (1.0-8.0); PLATELET COUNT 393 thou/uL (150-400); RBC 4.66 mil/uL (4.20-5.00); RDW 14.3 % (10.5-14.5); WBC 15.5 thou/uL (4.0-11.0)
[2020-06-21 21:55] LABS: ANION GAP 11 mmol/L (7-16); BUN 17 mg/dL (7-18); CALCIUM 9.2 mg/dL (8.5-10.1); CHLORIDE 106 mmol/L (98-107); CO2 25 mmol/L (21-32); CREATININE 0.9 mg/dL (0.6-1.0); GLUCOSE 129 mg/dL (74-106); POTASSIUM 4.5 mmol/L (3.5-5.1); SODIUM 142 mmol/L (136-145)
[2020-06-21 22:05] LABS: ALBUMIN 3.7 g/dL (3.4-5.0); DIRECT BILIRUBIN < 0.1 mg/dL (<0.1-0.2); SGOT 17 U/L (15-37); SGPT 17 U/L (14-59); TOTAL BILIRUBIN 0.3 mg/dL (0.2-1.0); TOTAL PROTEIN 7.6 g/dL (6.4-8.2); TROPONIN-I <0.06 ng/mL (<0.06)
[2020-06-22] MEDS ORDERED: ZPAK PO (00:02)
[2020-06-22] MEDS ORDERED: PREDNISONE 20 M20 MG PO (00:02)
[2020-06-22] MEDS ORDERED: SINGULAIR 10 MG10 M1 PO (00:14)
[2020-06-22] MEDS ORDERED: IPRATROPIU0.2 MG/1 M INH (00:14)
[2020-06-22 00:15] VITALS: BP 130/73
--- NOTE | 2020-06-22 11:30 | EKG ---
[address] [address] ELECTROCARDIOGRAM REPORT Name: SHOSHANA SORIANO Room #: DEP [facility]#: [id number] Admission: 06/21/20 Attend Phys: Discharge: 06/22/20 Date of : 71 Report #: [id number] [facility] ED Test Date: 2020-06-21 Test Time: 21:34:42 Pat Name: SHOSHANA SORIANO Department: Room: Gender: F Mandarin Teacher: christiano : 1975 Requested By: Carmela Perez Order Number: [id number] MD: Bob Shi Measurements Intervals [place] Rate: 118 P: 67 [place]: 114 QRS: 30 QRSD: 92 T: 80 QT: 291 QTc: 408 Interpretive Statements Sinus tachycardia Artifact in lead(s) II,III,aVL,aVF,V1,V2,V3,V4,V5,V6 Compared to ECG 06/04/2020 20:57:09 No significant changes Electronically Signed On 06-22-2020 11:30:40 CDT by Bob Shi [email or web address] <ELECTRONICALLY SIGNED> By: Bob Shi MD, [facility] 06/22/20 1130 33 33 Bob Shi MD, [facility] /EPI
== END 2020-06-22 00:20 | disposition home or self-care (01) ==
LOC: ER 21:27
PROVIDERS: Emergency Medicine
DX: J44.1 Chronic obstructive pulmonary disease with (acute) exacerbation (principal); Z79.899 Other long term (current) drug therapy; Z87.891 Personal history of nicotine dependence; Z79.82 Long term (current) use of aspirin

== ENCOUNTER 2020-07-12 16:44 | Emergency (ER) | payer OTHER ==
[~2020-07-12] VITALS: Ht 162.6 cm; Wt 72.6 kg
[~2020-07-12 16:44] MED LIST changes: +IPRATROPIU0.2 MG/1 M INH
[2020-07-12 17:50] LABS: ABSOLUTE NEUTROPHILS 5.1 thou/uL (1.4-8.2); BASOPHILS 1.2 % (0.0-2.0); EOSINOPHILS 5.4 % (0.0-3.0); HEMATOCRIT 40.8 % (37.0-47.0); HEMOGLOBIN 13.8 gm/dL (12.0-15.0); LYMPHOCYTES 20.3 % (24.0-44.0); MCH 31.1 pg (26.0-34.0); MCHC 33.7 g/dL (28.0-37.0); MCV 92.1 fL (80.0-100.0); MONOCYTES 5.4 % (1.0-8.0); PLATELET COUNT 400 thou/uL (150-400); POLYS 67.7 % (36.0-66.0); RBC 4.43 mil/uL (4.20-5.00); RDW 13.5 % (10.5-14.5); WBC 7.5 thou/uL (4.0-11.0)
[2020-07-12 17:57] LABS: CALCIUM 8.7 mg/dL (8.5-10.1); CREATININE 0.9 mg/dL (0.6-1.0); POTASSIUM 4.1 mmol/L (3.5-5.1)
[2020-07-12 18:01] LABS: INR 0.94; PROTIME 10.3 Seconds (9.3-11.4)
[2020-07-12 18:03] LABS: ALBUMIN 3.5 g/dL (3.4-5.0); TOTAL BILIRUBIN 0.3 mg/dL (0.2-1.0); TOTAL PROTEIN 6.6 g/dL (6.4-8.2)
[2020-07-12 18:42] VITALS: BP 110/71
--- NOTE | 2020-07-14 09:27 | EKG ---
[address] [address] ELECTROCARDIOGRAM REPORT Name: SHOSHANA SORIANO [id number] Admission: 07/12/20 Attend Phys: Discharge: 07/12/20 Date of : 71 Report #: [id number] ED Test Date: 2020-07-12 Test Time: 17:06:45 Pat Name: SHOSHANA SORIANO Department: Room: Gender: F Appraiser: sonya : 1975 Requested By: Jw Fletcher Order Number: [id number] MD: Darrel Banks Measurements Intervals [place] Rate: 89 P: 56 MN: 145 QRS: 16 QRSD: 102 T: 51 QT: 397 QTc: 484 Interpretive Statements Sinus rhythm Nonspecific ST segment abnormality Compared to ECG 06/21/2020 21:34:42 Sinus tachycardia no longer present Electronically Signed On 07-14-2020 9:27:44 CDT by Darrel Banks [email or web address] <ELECTRONICALLY SIGNED> By: Darrel Banks MD, [facility] 07/14/20 0927 1706 1706 Darrel Banks MD, FACC /EPI
== END 2020-07-12 18:42 | disposition home or self-care (01) ==
LOC: ER 16:44
PROVIDERS: Physician Assistant
DX: R60.0 Localized edema (principal); D68.51 Activated protein C resistance; J45.909 Unspecified asthma, uncomplicated; Z87.891 Personal history of nicotine dependence; Z79.82 Long term (current) use of aspirin; Z79.899 Other long term (current) drug therapy; Z98.51 Tubal ligation status; Z86.718 Personal history of other venous thrombosis and embolism

== ENCOUNTER 2020-07-16 21:23 | Emergency (ER) | payer OTHER ==
[~2020-07-16] VITALS: Ht 162.6 cm; Wt 72.6 kg
[2020-07-16 21:28] VITALS: BP 107/70
[2020-07-16] MEDS ORDERED: DOXYCYCLINE 10100 MG PO (21:55)
== END 2020-07-16 22:05 | disposition home or self-care (01) ==
LOC: ER 21:23
DX: J34.0 Abscess, furuncle and carbuncle of nose (principal); J45.901 Unspecified asthma with (acute) exacerbation; D68.51 Activated protein C resistance; Z87.891 Personal history of nicotine dependence; Z79.82 Long term (current) use of aspirin; Z86.718 Personal history of other venous thrombosis and embolism; Z90.49 Acquired absence of other specified parts of digestive tract; Z98.51 Tubal ligation status

== ENCOUNTER 2020-07-27 22:52 | Inpatient (IN) | payer OTHER ==
[~2020-07-27] VITALS: Ht 162.6 cm; Wt 72.6 kg
[~2020-07-27 22:52] MED LIST changes: +DOXYCYCLINE 10100 MG PO
[2020-07-27 22:57] VITALS: BP 160/111
[2020-07-28] MEDS ORDERED: PREDNISONE 10 M10 MG PO (00:34)
[2020-07-28 00:40] VITALS: BP 160/11
[2020-07-28 01:42] LABS: HEMATOCRIT 43.9 % (37.0-47.0); HEMOGLOBIN 14.4 gm/dL (12.0-15.0); MCH 30.4 pg (26.0-34.0); MCHC 32.8 g/dL (28.0-37.0); MCV 92.5 fL (80.0-100.0); RBC 4.75 mil/uL (4.20-5.00); RDW 13.9 % (10.5-14.5); WBC 11.4 thou/uL (4.0-11.0)
[2020-07-28 01:53] LABS: CALCIUM 9.1 mg/dL (8.5-10.1); POTASSIUM 4.4 mmol/L (3.5-5.1)
[2020-07-28 01:58] LABS: ALBUMIN 3.4 g/dL (3.4-5.0); TOTAL BILIRUBIN 0.2 mg/dL (0.2-1.0); TOTAL PROTEIN 7.2 g/dL (6.4-8.2)
[2020-07-28 03:09] VITALS: BP 118/75
[2020-07-28 03:39] VITALS: BP 114/75
[2020-07-28 03:43] VITALS: BP 116/78
--- NOTE | 2020-07-28 04:35 | NUR ---
PT ARRIVED FROM THE ER THIS AM @0330. ADMISSION DONE AND PT ORIENTED TO THE UNIT. PT TEARFUL STATED HASN'T SMOKED CIGARETTES IN LESS THAN A YEAR AND REFUSED NICOTINE PATCH. FELT SHE WAS BEING ACCUSED OF SMOOKING WHILE SHE WAS IN THE ER. THIS NURSE TALKED WITH PT. IV INTACT AND SALINE LOCK. PT YP AD AI. WHEEZING IN LUNGS NOTED. PT BEING MONITORED ON TELE. NO FURTHER SIGNS OF DISTRESS WILL CONT TO MONITOR.
[2020-07-28 08:03] VITALS: BP 106/74
--- NOTE | 2020-07-28 11:37 | NUR ---
ASSUMED PT CARE THIS AM. PT ALERT & ORIENTED X4. PT HAS IV SITE ON R HAND 22 GAUGE SALINE LOCKED. NO WHEEZING NOTED THIS AM. PT ON NC @ 2L. PT DENIES PAIN, NAUSEA AND VOMITING. PT IS UP AD AI. PT AT THE BEDSIDE, BED ON THE LOWEST POSITION, SIDE RAILS UP, CALL LIGHT WITHIN REACH. WILL CONTINUE TO MONITOR PT. FOLLOW POC.
--- NOTE | 2020-07-28 15:26 | NUR ---
PT ADMITTED RELATED TO COPD EXACERBATION. CM REVIEWED CHART AND SPOKE WITH CARE TEAM. CM MET WITH PT AT BEDSIDE THIS DAY. PT APPEARED TO BE A&O X4. CM ROLE INTRODUCED. PT INDICATED SHE RESIDES IN A HOUSE WITH HER FAMILY WITH 3 STEPS TO ENTER AND NO STEPS INSIDE. PT INDICATED THAT SHE HAS A NEBULIZER FOR HOME USE AND NO OTHER DME. PT INDICATED SHE GOES TO [facility] FOR FOLLOW UP CARES IN THE COMM[place]ITY. PT INDICATED SHE IS PATIENT PAY. PT INDICATED SHE PLANS TO RETURN HOME ONCE MEDICALLY STABLE. CM FOLLOWING REGARDING DC PLANNING.
[2020-07-28 19:58] VITALS: BP 109/75
--- NOTE | 2020-07-29 03:26 | NUR ---
ASSUMED CARE OF PT AT 1900. PT IS A/O X4 AND TRANSFERS INDEPENDENTLY IN ROOM. CURRENTLY ON ROOM AIR. PT STATED SHE TOOK OFF HER OXYGEN DURING THE AM AND HASN'T NEEDED IT SINCE. DOES HOWEVER C/O SOA WITH EXERTION. WHEEZES PRESENT UPON ASSESSMENT. PT IS CURRENTLY RECEIVING BRTX Q4 HR. PT STATED SHE WANTS TO MAKE A FORMAL COMPLAINT ABOUT THE EMERGENCY DEPARTMENT. PROVIDED HER COMMENT CARDS TO FILL OUT AT HER CONVENIENCE AND NOTIFIED THE CHARGE NURSE WELL THE HOUSE SUPERVISER. CALL LIGHT IS WITHIN REACH. PT IS PROGRESSING TOWARDS PLAN OF CARE GOALS.
[2020-07-29 08:09] VITALS: BP 110/76
[2020-07-29] MEDS ORDERED: LEVOFLOXACIN500 MG PO (14:06)
[2020-07-29] MEDS ORDERED: ACETAMINOPHEN325 M1 PO (14:06)
[2020-07-29] MEDS ORDERED: SINGULAIR 10 MG10 M1 PO (14:06)
[2020-07-29 15:01] VITALS: BP 110/76
--- NOTE | 2020-07-29 15:02 | NUR ---
CARE TEAM INDICATED THAT PT IS MEDICALLY STABLE TO DISCHARGE HOME THIS DAY. PT IS TO DC HOME TO SELF CARE. PT HAS A NEBULIZER FOR HOME USE. NO OTHER CM INTERVENTION INDICATED. CASE CLOSED.
[2020-07-29 15:27] VITALS: BP 116/53
[2020-07-29 16:10] VITALS: BP 110/76
--- NOTE | 2020-07-29 16:33 | NUR ---
Assumed pt care at 7am.Assessment completed.vss.Pt was upset and tearful about the treatment received in emergency dept.Apology given with service recovery. Nurse hotel service manager notified.Pt in and out of bed to bathroom independently.Dr Horton here,dc order noted. Pt tolerated meals and meds.Dc summary compile and reviewed with pt. Saline lock dc'd.At 1630,pt dc home ambulatory accompanied by genetic engineer.
== END 2020-07-29 17:19 | disposition home or self-care (01) | DRG 189 ==
LOC: ER 22:52 → 4W 07-28 00:52 → EROBS 07-28 03:06 → 4W 07-28 03:06
PROVIDERS: Student in an Organized Health Care Education/Training Program; ADMIT Hospitalist; ATTEND Hospitalist
DX: J96.21 Acute and chronic respiratory failure with hypoxia (principal); J44.1 Chronic obstructive pulmonary disease with (acute) exacerbation; D68.2 Hereditary deficiency of other clotting factors; J44.0 Chronic obstructive pulmonary disease with (acute) lower respiratory infection; J45.909 Unspecified asthma, uncomplicated; J20.9 Acute bronchitis, unspecified; Z86.718 Personal history of other venous thrombosis and embolism; Z90.49 Acquired absence of other specified parts of digestive tract; Z87.891 Personal history of nicotine dependence
CPT/HCPCS: 10045

== ENCOUNTER 2020-08-20 15:57 | Emergency (ER) | payer OTHER ==
[~2020-08-20] VITALS: Ht 162.6 cm; Wt 72.6 kg
[~2020-08-20 15:57] MED LIST changes: +ACETAMINOPHEN325 M1 PO; +LEVOFLOXACIN500 MG PO
[2020-08-20] MEDS ORDERED: BACTRIM DS TAB1 EACH PO (16:38)
[2020-08-20] MEDS ORDERED: CEPHALEXIN500 MG PO (16:38)
[2020-08-20 16:46] VITALS: BP 105/67
== END 2020-08-20 16:46 | disposition home or self-care (01) ==
LOC: ER 15:57
DX: L03.211 Cellulitis of face (principal); J45.909 Unspecified asthma, uncomplicated; J44.1 Chronic obstructive pulmonary disease with (acute) exacerbation; F17.210 Nicotine dependence, cigarettes, uncomplicated; Z98.51 Tubal ligation status; Z90.49 Acquired absence of other specified parts of digestive tract

== ENCOUNTER 2020-11-02 19:03 | Emergency (ER) | payer OTHER ==
[~2020-11-02] VITALS: Ht 162.6 cm; Wt 77.1 kg
[~2020-11-02 19:03] MED LIST changes: +BACTRIM DS TAB1 EACH PO; +CEPHALEXIN500 MG PO
[2020-11-02] MEDS ORDERED: PERCOCET 5-3251 EACH PO (21:44)
[2020-11-02 22:05] VITALS: BP 132/68
== END 2020-11-02 22:06 | disposition home or self-care (01) ==
LOC: ER 19:03
DX: S41.152A Open bite of left upper arm, initial encounter (principal); S81.851A Open bite, right lower leg, initial encounter; J45.909 Unspecified asthma, uncomplicated; J44.1 Chronic obstructive pulmonary disease with (acute) exacerbation; Z90.49 Acquired absence of other specified parts of digestive tract; Z98.51 Tubal ligation status; Z87.891 Personal history of nicotine dependence; W54.0XXA Bitten by dog, initial encounter; Y93.89 Activity, other specified; Y92.89 Other specified places as the place of occurrence of the external cause; Y99.8 Other external cause status

== ENCOUNTER 2021-05-20 23:04 | Emergency (ER) | payer OTHER ==
[~2021-05-20] VITALS: Ht 165.1 cm; Wt 68.0 kg
--- NOTE | ~2021-05-20 | EMS ---
[address] [address] EMS Patient Care Report Name: SHOSHANA SORIANO Room #: DEP SHAQUILLE Stanford#: [id number] Admission: 05/20/21 Attend Phys: Discharge: 05/21/21 Date of : 71 Report #: [id number] THIS REPORT FOR: //name// Report Transmitted: 05/21/2021 08:43 EMS Care Summary [place], [place]/[facility] Incident [id number] @ 05/20/2021 22:28 Incident Location [address] [place] [address] Patient SHOSHANA SORIANO Female, 46 Years 1975 Patient Address [address] [place], [place] [id number] Patient History Asthma,Chronic Obstructive Pulmonary Disease (COPD), Patient Allergies No known allergies, Patient Medications None Reported, Chief Complaint ASTHMA Disposition Transported No Lights/[place] Dispatch Reason Breathing Problem Transported To [facility] Narrative M41 was dispatched via radio for a 911 call for a shortness of breath. Patient was a 46 y/o female complaining of asthma attack. M41 responded with emergency lights and sirens to the scene. [address] [address] EMS Patient Care Report Name: SHOSHANA SORIANO Room #: DEP ER Abdoulaye#: [id number] Admission: 05/20/21 Attend Phys: Discharge: 05/21/21 Date of : 71 Report #: [id number] Before arrival on scene, all necessary PPE was donned including gloves, masks, and eye protection. On scene, patient was located standing in the living room. Patient was doing an at home albuterol treatment prior to arrival. Patient was found A&Ox4 with no obvious signs of pain or distress. Patient's ABC's revealed no immediate life threats. Patient finished the treatment stated she felt better. Patient's vitals and assessment were taken and were within normal limits. Patient's lung sounds revealed wheezing in all baker and diminished sounds in the lower baker. Patient was urged to be transported by EMS. Patient agreed. Patient was ambulatory and walked to the stretcher in the ambulance. On the stretcher, patient was secured using seat belts and rails. In the ambulance, patient's vitals and assessment were reevaluated with no change. Patient was given a DuoNeb w/ 5mg of Albuterol and 0.5mg of Atrovent at 8 lpm of O2. 18g IV was established in the right AC. Patient was given 125mg of SoluMedrol. Patient's 4 lead EKG revealed sinus tachycardia. Patient was transported non-emergent to [facility]. During transport, patient report was given via radio. En route, patient was monitored and no complications occurred. Patient's lung sounds were better, but wheezing was still present in all baker. Upon completion of the DuoNeb, patient was given 5 lpm of O2 via nasal cannula to assist with O2 saturation. Patient signed for permission to transport. Upon arrival, patient was taken to ED room 5. Patient self transitioned from stretcher to bed. Nurse in charge was given report. Nurse signed for transfer of care. Patient was left in care of staff. M41 returned in service. Radha Cedillo [id number] Initial Vitals @22:57P: 113,BP: 110/77,CO: 1, @22:35P: 119,R: 1,BP: 133/72,GCS: 15,SpO2: 90,Revised Trauma: 9, @22:46P: 113,R: 26,BP: 134/32,Pain: 4/10,GCS: 15,Glucose: 115,CO: 2,SpO2: 95,Revised Trauma: 12,FL Suspected: false Assessments @22:35MENTAL:Event Oriented,Place Oriented,Time Oriented,Person Oriented,SKIN:Pale,HEENT:Eyes: Left Pupil: 4-mm,Eyes: Right Pupil: 4-mm,LUNG SOUNDS:ABDOMEN:PELVIS//GI:EXTREMITIES:Capillary Refill: Right Upper: < 2 Sec,Left Arm: No Abnormalities,Right Arm: No Abnormalities,Left Leg: No Abnormalities,Right Leg: No Abnormalities,PULSE:Radial: 2+ Normal,NEURO:No Abnormalities, Impression Shortness of breath [facility] [address] [place] [address] EMS Patient Care Report Name: SHOSHANA SORIANO Room #: DEP [id number] Admission: 05/20/21 Attend Phys: Discharge: 05/21/21 Date of : 71 Report #: [id number] Procedures @22:34 ALS Assessment Response: UnchangedSucceeded @22:43 Oxygen FlowRate: 8 Device: Nebulizer Response: ImprovedSucceeded @22:54 Oxygen FlowRate: 5 Device: Nasal Cannula (NC) Response: UnchangedSucceeded @22:45 IV Therapy - Saline Lock 10cc (18 ga) Site: Antecubital-Right Response: UnchangedSucceeded @22:43 Albuterol - 5 Milligrams (mg) - Nebulized Response: Improved @22:43 Atrovent - 0.5 Milligrams (mg) - Nebulized Response: Improved @22:46 Solu-Medrol - 125 Drops (gtts) - Intravenous (IV) Response: Unchanged @PTAOxygen FlowRate: 6 Device: Nebulizer Response: UnchangedSucceeded @22:48 3-Lead ECG Response: UnchangedSucceeded Timeline IT QUALITY ANALYST,Oxygen FlowRate: 6 Device: Nebulizer Response: UnchangedSucceeded, 22:27,Call Received 22:27,Dispatch Notified 22:28,Dispatched 22:29,En Route 22:32,On Scene 22:34,At Patient 22:34,ALS Assessment,Response: UnchangedSucceeded, 22:35,BP: 133/72 M,PULSE: 119,RR: 1 R,SPO2: 90 Ox,ETCO2: ,BG: ,PAIN: ,GCS: 15, 22:43,Oxygen FlowRate: 8 Device: Nebulizer Response: ImprovedSucceeded, 22:43,Albuterol - 5 Milligrams (mg) - Nebulized,Response: Improved 22:43,Atrovent - 0.5 Milligrams (mg) - Nebulized,Response: Improved 22:45,IV Therapy - Saline Lock 10cc 18 ga Site: Antecubital-Right,Response: UnchangedSucceeded, 22:46,Solu-Medrol - 125 Drops (gtts) - Intravenous (IV),Response: Unchanged 22:46,BP: 134/32 M,PULSE: 113,RR: 26 R,SPO2: 95 Ox,ETCO2: ,B,PAIN: 4,GCS: 15, 22:48,3-Lead ECG,Response: UnchangedSucceeded, 22:48,Depart Scene 22:54,Oxygen FlowRate: 5 Device: Nasal Cannula (NC) Response: UnchangedSucceeded, 22:57,BP: 110/77 M,PULSE: 113,RR: R,SPO2: Ox,ETCO2: ,BG: ,PAIN: ,GCS: , 23:00,At Destination 23:12,Call Closed Disclaimer v1.1 Copyright 2021 [employer] This EMS Care Summary contains data elements from the applicable legal record (which may be displayed differently). It is designed to provide pertinent information for the following purposes: continuity of care, clinical quality, and state data reporting. The complete legal record is available to ED staff [address] [address] EMS Patient Care Report Name: SHOSHANA SORIANO Room #: DEP Abdoulaye#: [id number] Admission: 05/20/21 Attend Phys: Discharge: 05/21/21 Date of : 71 Report #: [id number] and administrators of the receiving hospital in [employer]'s Patient Tracker. All data is provided "as is."
[~2021-05-20 23:04] MED LIST changes: +PERCOCET 5-3251 EACH PO
[2021-05-20 23:34] LABS: ABSOLUTE NEUTROPHILS 7.4 thou/uL (1.4-8.2); BASOPHILS 0.6 % (0.0-2.0); EOSINOPHILS 2.1 % (0.0-3.0); HEMATOCRIT 42.8 % (37.0-47.0); LYMPHOCYTES 20.5 % (24.0-44.0); MCH 28.9 pg (26.0-34.0); MCHC 32.7 g/dL (28.0-37.0); MCV 88.5 fL (80.0-100.0); MONOCYTES 4.8 % (1.0-8.0); PLATELET COUNT 369 thou/uL (150-400); RBC 4.83 mil/uL (4.20-5.00); RDW 14.4 % (10.5-14.5); WBC 10.3 thou/uL (4.0-11.0)
[2021-05-20 23:44] LABS: CREATININE 0.9 mg/dL (0.6-1.0); POTASSIUM 3.4 mmol/L (3.5-5.1)
[2021-05-20 23:49] LABS: ALBUMIN 3.8 g/dL (3.4-5.0); TOTAL BILIRUBIN 0.3 mg/dL (0.2-1.0); TOTAL PROTEIN 7.3 g/dL (6.4-8.2)
[2021-05-21] MEDS ORDERED: MEDROLDOSEPACK PO (03:59)
[2021-05-21] MEDS ORDERED: BACTRIM DS TAB1 EACH PO (04:02)
[2021-05-21 04:07] VITALS: BP 118/70
== END 2021-05-21 04:18 | disposition home or self-care (01) ==
LOC: ER 23:04
PROVIDERS: Emergency Medicine
DX: J45.901 Unspecified asthma with (acute) exacerbation (principal); F17.210 Nicotine dependence, cigarettes, uncomplicated; J44.1 Chronic obstructive pulmonary disease with (acute) exacerbation; Z79.82 Long term (current) use of aspirin; Z79.899 Other long term (current) drug therapy; Z79.2 Long term (current) use of antibiotics; Z90.49 Acquired absence of other specified parts of digestive tract; Z98.51 Tubal ligation status; Z20.822 Contact with and (suspected) exposure to COVID-19